=== PATIENT | female | born 1960 | race African-American/Black ===

== ENCOUNTER → 2021-01-02 11:42 | Outpatient (BNVA) | payer OTHER, SELFPAY | PROVIDERS: PCP Internal Medicine; Visit Provider Surgery Vascular Surgery | DX: I83.11 Varicose veins of right lower extremity with inflammation (principal); Z79.899 Other long term (current) drug therapy | CPT/HCPCS: 99202 ==

== ENCOUNTER 2021-01-12 10:38 | Outpatient (REF) | payer SELFPAY ==
--- NOTE | ~2021-01-12 | US_ITS ---
EXAMINATION: RIGHT and LEFT LOWER EXTREMITY VENOUS ULTRASOUND (Reflux Exam) CLINICAL INDICATION: leg pain and varicose veins. COMPARISON: None. TECHNIQUE: Color flow triplex imaging and compression Doppler was performed to evaluate both the deep and the superficial systems bilaterally. To evaluate the superficial system, the examination was performed in the upright position. Color-flow Doppler ultrasound and compression ultrasound were utilized. In addition, maneuvers were utilized to demonstrate reflux. FINDINGS: 1. DEEP VENOUS ULTRASOUND OF THE RIGHT LOWER EXTREMITY: Respiratory variation, normal compression and augmented flow are noted in the right common femoral vein as well as the right popliteal vein and there is no evidence of deep venous thrombosis at these locations. There is no evidence of reflux in the deep system in either the common femoral vein or the popliteal vein. There is no evidence of a Overton's cyst. 2. SUPERFICIAL ULTRASOUND WITH DOPPLER OF RIGHT LOWER EXTREMITY: The right great saphenous vein at the saphenofemoral junction measures 8 mm, at the mid thigh 4 mm, [id number] 3 mm, [id number] 4 mm, at mid calf 3 mm and at the ankle measures 3 mm. There is no reflux demonstrated in the right great saphenous vein. There is a lateral accessory greater saphenous vein that measures 4 mm and does not demonstrate reflux The right small saphenous vein measures 2-5 mm and shows no reflux. There is a bilingual hr generalist in the mid thigh that measures 2 mm and does not demonstrate reflux. There is a bilingual hr generalist in the proximal calf that measures 2 mm and demonstrates 1.8 seconds reflux. 3. DEEP VENOUS ULTRASOUND OF THE LEFT LOWER EXTREMITY: Respiratory variation, normal compression and augmented flow are noted in the left common femoral vein as well as the left popliteal vein and there is no evidence of deep venous thrombosis at these locations. There is no evidence of reflux in the deep system in either the common femoral vein or the popliteal vein. . There is no evidence of a Overton's cyst. 4. SUPERFICIAL ULTRASOUND WITH DOPPLER OF LEFT LOWER EXTREMITY: Left great saphenous vein at the saphenofemoral junction measures 8 mm, at the mid thigh 4 mm, [id number] 3 mm, [id number] 2 mm, at mid calf 1 mm and at the ankle measures 2 mm. There is no reflux demonstrated in the left great saphenous vein. There is an accessory lateral greater saphenous vein that measures 2 mm and does not demonstrate reflux. The left small saphenous vein measures 2-3 mm and shows no reflux. There is a bilingual hr generalist in the mid thigh that measures 2 mm and does not demonstrate reflux. There is a bilingual hr generalist in the distal thigh that measures 2 mm and demonstrates 0.7 cm reflux. There is a varicosity in the mid calf that measures 3 mm and demonstrates 0.9 seconds. US/US venous duplex LE BI IMPRESSION: 1. No evidence of reflux or thrombus in the common femoral veins or popliteal veins bilaterally. 2. No greater or lesser saphenous vein reflux bilaterally. Reflux in a bilingual hr generalist in the right calf and varicosity in the left calf.
== END 2021-01-12 10:39 | disposition home or self-care (01) ==
LOC: HO.US 10:38
PROVIDERS: Visit Provider Surgery Vascular Surgery
DX: I83.893 Varicose veins of bilateral lower extremities with other complications (principal)
CPT/HCPCS: 93970

== ENCOUNTER → 2021-01-19 11:28 | Outpatient (BNVA) | payer SELFPAY | PROVIDERS: PCP Internal Medicine; Visit Provider Surgery Vascular Surgery | DX: I83.11 Varicose veins of right lower extremity with inflammation (principal) | CPT/HCPCS: 99212 ==